=== PATIENT | female | born 1955 | race Caucasian/White ===

== ENCOUNTER 2016-04-28 14:21 | Emergency (ER) | payer OTHER ==
[2016-04-28] MEDS ORDERED: SODIUM CHLORIDE 0.9% 1,000 ML ONE (14:59)
[2016-04-28 15:11] LABS: BASO % 0.2 % (0.2-1.0); EOS # 0.2 (0.0-0.5); EOS % 1.8 % (0.9-2.9); HEMATOCRIT 38.2 % (37.0-47.0); HEMOGLOBIN 12.9 gm/l (12.0-16.0); IMM NEUT% 0.3 % (0-1); LYMPH # 2.3 (1.0-4.8); LYMPH % 19.1 % (15-45); MEAN CELL VOLUME 90.7 fl (81.0-99.0); MEAN CORPUSCULAR HEMOGLOBIN 30.6 pg (27.0-31.0); MEAN CORPUSCULAR HGB CONC 33.8 g/dl (33.0-37.0); MEAN PLATELET VOLUME 12.2 fl (7.4-10.4); MONO # 0.6 (0.0-0.8); MONO % 4.9 % (4-12); NEUT % 73.7 % (43-75); PLATELET COUNT 225 K/mm3 (130-400); RED CELL DISTRIBUTION WIDTH 11.7 % (11.5-14.5)
--- NOTE | 2016-04-28 15:13 | RAD ---
CHEST-AP BEDSIDE COMPARISON: None HISTORY: Chest pain FINDINGS: Views: Frontal chest. Lungs: Heart and vessels: Normal Trachea and bronchi: Normal Mediastinum and angely: Normal Costophrenic sulci: Normal Chest wall and bones: Normal Upper abdomen: Normal. IMPRESSION: Negative one view chest.
[2016-04-28 15:22] LABS: I-STAT CREATININE 0.5 mg/dL (0.6-1.3)
[2016-04-28 15:37] LABS: D-DIMER 0.33 mg/L FEU (0.20-0.50); INR 0.99; PROTHROMBIN TIME 10.4 SECONDS (9.3-11.4)
[2016-04-28] MEDS ORDERED: PANTOPRAZOLE SODIUM 40 MG VIAL IV ONE (15:42)
[2016-04-28] MEDS ORDERED: MECLIZINE HCL 25 MG TABLET ONE (15:43)
[2016-04-28 16:12] LABS: SPECIFIC GRAVITY 1.025 (1.001-1.030); URINE BILIRUBIN NEGATIVE (NEGATIVE); URINE BLOOD NEGATIVE (NEGATIVE); URINE GLUCOSE (UA) 2+ (NEGATIVE); URINE LEUKOCYTE ESTERASE 1+ (NEGATIVE); URINE NITRITE NEGATIVE (NEGATIVE); URINE PROTEIN 2+ (NEGATIVE); URINE UROBILINOGEN NORMAL (0-1 mg/dl)
[2016-04-28 16:18] LABS: URINE APPEARANCE SL CLOUDY; URINE COLOR DARK YELLOW
[2016-04-28 16:31] LABS: URINE BACTERIA 2+; URINE RBC 0 /hpf
[2016-04-29 17:45] LABS: ALBUMIN 3.4 gm/dL (3.5-5.7); CALCIUM 9.1 mg/dL (8.6-10.3)
== END 2016-04-28 16:51 | disposition home or self-care (01) ==
LOC: ED 14:21
DX: R07.9 Chest pain, unspecified (principal); N30.00 Acute cystitis without hematuria; E11.9 Type 2 diabetes mellitus without complications; E07.9 Disorder of thyroid, unspecified; Z79.4 Long term (current) use of insulin; Z79.899 Other long term (current) drug therapy
CPT/HCPCS: 85379; 85025; 87086; 80053; 85610; 84484; 81001; 71010; 99284 ×2; 96374; A9270; C9113; J7030